=== PATIENT | male | born 1970 | race Hispanic/Latino ===

== ENCOUNTER 2021-05-27 13:41 | Outpatient (CLI) | payer OTHER ==
--- NOTE | 2021-05-27 15:31 | Cat Scan Report ---
CT chest wo con HISTORY: smoker COMPARISON: None TECHNIQUE: Chest CT exam. All CT scans at this location are performed using CT dose reduction for ALA RA by means of automated exposure control. FINDINGS: NODULES: 7mm posterior segment right upper lobe noncalcified solid pulmonary nodule. LUNGS: Mild emphysema. Lungs are clear. PLEURA: No significant pleural effusion. No pneumothorax. HEART AND PERICARDIUM: Large quantity of multivessel coronary atherosclerotic calcifications. ADDITIONAL FINDINGS: None. UPPER ABDOMEN: No significant abnormality. OSSEOUS STRUCTURES: No aggressive appearing osseous lesions. IMPRESSION: 1. 7mm right upper lobe pulmonary nodule. Lung-RADS Category 3: PROBABLY BENIGN - Recommendation: Follow-up LDCT in 6 months. - Please see below for additional details. Lung-RADS Version 1.1 Assessment Categories (2019) CATEGORY 0: INCOMPLETE - Incomplete exam or Prior chest CT examination(s) being located for comparison - Recommendation: Additional lung cancer screening CT images and/or comparison to prior chest CT exa minations is needed CATEGORY 1: NEGATIVE - No lung nodules OR benign nodules - Recommendation: Continue annual low dose CT (LDCT) screening in 12 months. CATEGORY 2: BENIGN APPEARANCE OR BEHAVIOR - PERIFISSURAL nodule: < 10.0 mm - SOLID nodule: Prior nodule < 6.0 mm or New nodule < 4.0 mm - PARTIALLY SOLID nodule: < 6.0 mm - NONSOLID nodule: < 30 mm or > 30 mm and unchanged or slow growth (< 1.5 mm since last exam) - CATEGORY 3 or 4 nodules unchanged for >= 3 months - Recommendation: Continue annual LDCT screening in 12 months. CATEGORY 3: PROBABLY BENIGN - SOLID nodule: 6.0-7.9 mm at Baseline OR New solid nodule between 4.0-5.9 mm. - PARTIALLY SOLID nodule: >= 6.0 mm with solid component < 6.0 mm OR new < 6.0 mm total diameter - NONSOLID nodule: >= [address] or new - Recommendation: Follow-up LDCT in 6 months. CATEGORY 4A: SUSPICIOUS - SOLID nodule: 8.0-14.9 mm OR Growing < 8.0 mm OR New 6-7.9 mm. - PARTIALLY SOLID nodule: >= 6.0 mm with solid component 6.0-7.9 mm OR New/Growing solid component < 4.0 mm - ENDOBRONCHIAL nodule - Recommendation: Follow-up with LDCT in 3 months; or, PET/CT may be used if there is a solid compon ent to the nodule measuring 8.0 mm or larger. CATEGORY 4B: VERY SUSPICIOUS - Prior SOLID nodule: >= 15.0 mm OR New/Growing component and >= 8.0 mm - PARTIALLY SOLID nodule: solid component >= 8.0 mm OR New/Growing solid component >= 4.0 mm - Recommendation: Follow-up with CT chest with contrast, PET/CT, and or tissue sampling depending on comorbidities and probability of malignancy as determined by the referring clinician. PET/CT may be used when there is a solid component of at least 8.0 mm. For new large nodules that develop on an an nual repeat screening CT, a 1 month LDCT may be recommended to address potentially infectious or infl ammatory conditions. CATEGORY 4X: VERY SUSPICIOUS - CATEGORY 3 or 4 nodules with additional features or imaging findings that increases the suspicion of malignancy. - Recommendation: Follow-up with CT chest with contrast, PET/CT, and or tissue sampling depending on comorbidities and probability of malignancy as determined by the referring clinician. PET/CT may be used when there is a solid component of at least 8.0 mm. For new large nodules that develop on an an nual repeat screening CT, a 1 month LDCT may be recommended to address potentially infectious or infl ammatory conditions. Signer Name: Ryan Ocampo MD Signed: 05/27/2021 3:27 PM Workstation Name: [id number]
== END 2021-05-27 13:42 | disposition home or self-care (01) ==
LOC: CT 13:41
PROVIDERS: ATTEND Internal Medicine
DX: R91.1 Solitary pulmonary nodule (principal); J43.9 Emphysema, unspecified; I25.10 Atherosclerotic heart disease of native coronary artery without angina pectoris; Z87.891 Personal history of nicotine dependence
CPT/HCPCS: 71250